=== PATIENT | female | born 1950 | race Two or more races ===

== ENCOUNTER 2019-11-15 07:55 | Outpatient (CLI) | payer OTHER | END 2019-11-15 08:08 | disposition home or self-care (01) | LOC: TOM 07:55 | PROVIDERS: ATTEND Internal Medicine | DX: R10.30 Lower abdominal pain, unspecified (principal); K57.32 Diverticulitis of large intestine without perforation or abscess without bleeding | CPT/HCPCS: 74177; Q9965 ==